=== PATIENT | male | born 1990 ===

== ENCOUNTER 2017-04-10 17:17 | Emergency (ER) | payer SELFPAY ==
[2017-04-10 19:44] LABS: BASO % 0.4 % (0.0-2.0); EOS # 0.1 K/uL (0.0-0.7); EOS % 0.8 % (0.0-4.0); HEMOGLOBIN 14.5 g/dL (12.0-18.0); LYMPH # 1.4 K/uL (1.0-4.3); LYMPH % 17.3 % (20.0-40.0); MEAN CELL VOLUME 87.8 fL (80.0-94.0); MEAN CORPUSCULAR HEMOGLOBIN 29.9 pg (27.0-31.0); MEAN PLATELET VOLUME 7.5 fL (7.2-11.7); MONO # 0.5 K/uL (0.0-0.8); MONO % 5.5 % (0.0-10.0); NEUT # 6.3 K/uL (1.8-7.0); RBC 4.85 Mil/uL (4.40-5.90); RED CELL DISTRIBUTION WIDTH 13.4 % (11.5-14.5); WHITE BLOOD COUNT 8.3 K/uL (4.8-10.8)
[2017-04-10 19:51] VITALS: RESP 18
[2017-04-10 19:52] LABS: ALBUMIN 4.6 g/dL (3.5-5.0)
[2017-04-10 19:55] LABS: ALB/GLOB RATIO 1.5 (1.0-2.1); AST/SGOT 44 U/L (17-59); BLOOD UREA NITROGEN 10 mg/dL (9-20); GFR AFRICAN-AMERICAN > 60; GFR NON-AFRICAN AMERICAN > 60
[2017-04-10 19:56] LABS: ALT/SGPT 37 U/L (21-72)
[2017-04-10 20:01] LABS: URINE BACTERIA RARE (<OCC); URINE BILIRUBIN NEGATIVE (NEGATIVE); URINE BLOOD NEGATIVE (NEGATIVE); URINE CLARITY Clear (Clear); URINE COLOR Yellow (YELLOW); URINE GLUCOSE (UA) NORMAL (Normal); URINE LEUKOCYTE ESTERASE NEG Leu/uL (Negative); URINE NITRATE NEGATIVE (NEGATIVE); URINE PROTEIN NEGATIVE (NEGATIVE); URINE UROBILINOGEN NORMAL mg/dL (0.2-1.0)
[2017-04-10 20:09] LABS: BARBITURATES, UR NEGATIVE (NEGATIVE)
[2017-04-10 20:10] LABS: BENZODIAZEPINES, UR NEGATIVE (NEGATIVE)
[2017-04-10 20:13] LABS: OPIATES, UR NEGATIVE (NEGATIVE)
[2017-04-10 20:14] LABS: PHENCYCLIDINE, UR NEGATIVE (NEGATIVE)
--- NOTE | 2017-04-10 21:25 | C.PDOC ---
Time Seen by Provider: 04/10/17 18:34 Chief Complaint (Nursing): Psychiatric Evaluation History Per: Patient Onset/Duration Of Symptoms: Days Current Symptoms Are (Timing): Still Present Suicide/Self Injury Attempted (Context): None Severity: Moderate Associated Symptoms: denies: Suicidal Thoughts, Suicidal Plan Additional History Per: Prior Records Past Medical History Reviewed: Historical Data, Nursing Documentation, Vital Signs Vital Signs: Last Vital Signs Temp 98.3 F 04/10/17 19:15 Pulse 97 H 04/10/17 19:15 Resp 18 04/10/17 19:15 BP 123/79 04/10/17 19:15 Pulse Ox 100 04/10/17 19:15 - Medical History PMH: Bipolar Disorder Family History: States: Unknown Family Hx - Social History Hx Tobacco Use: Yes Hx Alcohol Use: Yes Hx Substance Use: No Review Of Systems Except As Marked, All Systems Reviewed And Found Negative. Constitutional: Negative for: Fever, Weakness Cardiovascular: Negative for: Chest Pain Respiratory: Negative for: Shortness of Breath Gastrointestinal: Negative for: Vomiting, Abdominal Pain Musculoskeletal: Negative for: Neck Pain Skin: Negative for: Rash Neurological: Negative for: Weakness, Numbness, Seizures, Altered Mental Status Psych: Negative for: Psychosis, Suicidal ideation Physical Exam - Physical Exam Appears: Non-toxic, No Acute Distress Skin: Normal Color, Warm, Dry, No Rash Head: Atraumatic, Normacephalic Eye(s): bilateral: Normal Inspection, PERRL, EOMI Neck: Normal ROM, Supple Cardiovascular: Rhythm Regular Respiratory: Normal Breath Sounds, No Accessory Muscle Use Gastrointestinal/Abdominal: Soft, No Tenderness Back: No CVA Tenderness Extremity: Normal ROM Neurological/Psych: Oriented x3, Normal Speech, Normal Cognition, Normal Motor, Normal Sensation ED Course And Treatment - Laboratory Results Result Diagrams: 04/10/17 19:41 04/10/17 19:41 Lab Interpretation: No Acute Changes O2 Sat by Pulse Oximetry: 100 Pulse Ox Interpretation: Normal Progress Note: Pt was evaluated by the mat worker who d/w Dr. Longo. They psychiatrically cleared pt for discharge home and arranged for outpt f/up. Disposition Counseled Patient/Family Regarding: Studies Performed, Diagnosis, Need For Followup - Disposition Disposition: HOME/ ROUTINE Disposition Time: 21:24 Condition: STABLE Additional Instructions: Follow up with outpatient mental health as instructed by the mat worker. Return to the ER if you develop suicidal or homicidal thoughts, worsening of symptoms or if you have any other concerns. Instructions: Bipolar Disorder (ED) Forms: [facility] ([place]) - Clinical Impression Clinical Impression: Bipolar disorder
[2017-04-10 21:31] VITALS: BP 124/82; PULSE 88; TEMP 98.2; O2SAT 98
== END 2017-04-10 21:31 | disposition home or self-care (01) ==
LOC: C.ER 17:17
DX: F31.9 Bipolar disorder, unspecified (principal)
CPT/HCPCS: 80053; 81001; 85025; 99285; G0480

== ENCOUNTER → 2018-09-16 17:14 | Emergency (ER) | payer MEDICAID, OTHER | END | disposition left against medical advice (07) | LOC: C.ER 17:14 | DX: Z02.89 Encounter for other administrative examinations (principal); R07.9 Chest pain, unspecified ==